=== PATIENT | male | born 1970 | race Caucasian/White ===

== ENCOUNTER 2018-10-24 04:59 | Inpatient (IN) | payer MEDICARE ==
[2018-10-24] MEDS ORDERED: Albuterol Sulfate 2.5 mg/3 ml Neb ONE (05:12)
[2018-10-24] MEDS ORDERED: Aspirin Chewable 81 MG TAB ONE (05:21)
[2018-10-24 05:26] LABS: #Eosinphils 0.1 thou/uL (0.0-0.7); #Lymphocytes 1.2 thou/uL (1.20-3.40); #Monocytes 0.7 thou/uL (0.11-0.59); #Neutrophils 8.5 thou/uL (1.40-6.50); %Basophils 0.2 % (0.0-1.0); %Eosinophils 0.8 % (0.0-10.0); %Lymphocytes 11.2 % (21.0-51.0); %Neutrophils 80.8 % (42.0-75.0); Hemoglobin 14.3 g/dL (14.0-18.0); Mean Corpuscular HGB CONC 32.5 g/dL (32.0-36.0); Mean Corpuscular Hemoglobin 29.4 pg (27.0-31.0); Mean Corpuscular Volume 90.6 fL (78.0-98.0); Mean Platelet Volume 7.4 fL (7.4-10.4); Platelet Count 205 thou/uL (130-400); RBC Distribution Width 12.3 % (11.5-14.5); Red Blood Cell (RBC) Count 4.85 mill/uL (4.70-6.10); White Blood Cell (WBC) Count 10.5 thou/uL (4.8-10.8)
[2018-10-24 05:43] LABS: ALT (SGPT) 37 U/L (8-55); AST (SGOT) 30 U/L (5-34); Albumin 3.6 g/dL (3.5-5.0); Alkaline Phosphatase 98 U/L (40-150); Anion Gap 15 mmol/L (10-20); BUN (Urea Nitrogen) 8 mg/dL (8.9-20.6); Calc. Creatinine Clearance 0 mL/min (70-130); Calcium 9.2 mg/dL (7.8-10.44); Carbon Dioxide 27 mmol/L (22-29); Chloride 96 mmol/L (98-107); Estimated GFR-MDRD Greater than 90; Globulin 4.6 g/dL (2.4-3.5); Glucose 301 mg/dL (70-105); Potassium 4.2 mmol/L (3.5-5.1); Protein, Total 8.2 g/dL (6.0-8.3); Sodium 134 mmol/L (136-145)
[2018-10-24] MEDS ORDERED: Enoxaparin Sodium 100 MG/ML SYRINGE ONE (06:28)
[2018-10-24] MEDS ORDERED: Enoxaparin Sodium 80 MG/0.8 ML SYRINGE ONE (06:28)
[2018-10-24] MEDS ORDERED: methylPREDNISolone Sod Succ/PF 125 MG/2 ML VIAL ONE (06:28)
[2018-10-24] MEDS ORDERED: Magnesium 2 GM/50 ML BAG (IN WATER) ONE (06:28)
[2018-10-24] MEDS ORDERED: cefTRIAXone\\ROCEPHIN 1 GM VIAL ONE (07:10)
[2018-10-24] MEDS ORDERED: Sodium Chloride 0.9% 100 ML ONE (07:10)
[2018-10-24] MEDS ORDERED: Azithromycin 500 MG VIAL ONE (07:12)
--- NOTE | 2018-10-24 07:32 | RAD ---
SINGLE VIEW CHEST: Date: 10/24/18 COMPARISON: 08/04/06. HISTORY: Shortness of breath. FINDINGS: Single view of the chest shows normal sized cardiomediastinal silhouette. Diffuse increased interstit ial lung markings are present. There are questionable superimposed air space opacities projecting ove r the lungs. This could also be artifactual secondary to underpenetration. IMPRESSION: Possible multifocal infiltrates. POS: C
[2018-10-24] MEDS ORDERED: Acetaminophen 325 MG TAB PO PRN (12:18)
[2018-10-24] MEDS ORDERED: Ondansetron ODT 4 MG TAB SL PRN (12:18)
[2018-10-24] MEDS ORDERED: Ondansetron PF 4 MG/2 ML Vial IVP PRN (12:18)
[2018-10-24] MEDS ORDERED: Dextrose 50% Abboject 50 ML SYRINGE SLOW IVP PRN (15:55)
[2018-10-24] MEDS ORDERED: Dextrose 5% in Water 1,000 ML IV PRN (15:55)
[2018-10-24] MEDS ORDERED: HumaLOG 300 UNITS/3 ML VIAL SC PRN (15:55)
[2018-10-24] MEDS: HumaLOG 300 UNITS/3 ML VIAL SC PRN (16:35)
--- NOTE | 2018-10-24 17:25 | CON ---
DATE OF CONSULTATION: 10/24/2018 CONSULTING PHYSICIAN: Dr. Jama [facility] consultation. HISTORY OF PRESENT ILLNESS: The patient is a 48-year-old male. He is a very poor historian. He woke up with shortness of breath and wheezing this morning. He presented to the ER. He was briefly on BiPAP. He is now off that. He says he feels better. He received some steroids and breathing treatments and antibiotics in the emergency room. PAST MEDICAL HISTORY: 1. COPD/asthma. 2. Hypertension. 3. Diabetes mellitus, type 2. 4. Morbid obesity. PAST SURGICAL HISTORY: None. PSYCHIATRIC HISTORY: Unremarkable. SOCIAL HISTORY: Former smoker, quit several years ago. Does not consume alcohol. Does not use illicit drugs. MEDICATIONS: He is on many medications for diabetes and COPD, but does not know the names. ALLERGIES: NONE. FAMILY MEDICAL HISTORY: Remarkable for lung disease. REVIEW OF SYSTEMS: Remarkable for swelling, chronic pain, and obesity. PHYSICAL EXAMINATION: VITAL SIGNS: Temperature 98.6, pulse 90, respirations 16, O2 saturation 95%, and blood pressure 156/116. GENERAL: The patient is 5 feet 10 inches, weighs 387 pounds. BMI is 55.6. HEENT: Remarkable for class 4 Mallampati airway. NECK: No JVD. LUNGS: Expiratory wheezes and crackles bilaterally. CARDIAC: S1 and S2, regular. ABDOMEN: Soft, obese, nontender, and nondistended. EXTREMITIES: 3+ edema from the knees downward. LABORATORY DATA: White blood cell count 10, hematocrit 44, platelet count 205 with 80% neutrophils. Sodium 134, potassium 4.2, chloride 96, CO2 of 27, BUN 8, creatinine 0.7 glucose 301. BNP 113. Troponin 0.01. DIAGNOSTIC DATA: Chest x-ray shows interstitial changes bilaterally. ASSESSMENT: 1. Chronic obstructive pulmonary disease with exacerbation. 2. Question of concurrent pneumonia versus fluid overload. 3. Morbid obesity. 4. Underlying obstructive sleep apnea. PLAN: When I saw the patient at 4:00 p.m., there were no admission orders on the chart; therefore, I placed some orders for antibiotics, steroids, and nebulization treatments on the chart. I also placed sliding scale order for insulin. We are pending the rest of his home medications. He will continue BiPAP on and off as needed, but right now, I think he only needed at night for treatment of his HAILEY. Job ID: [id number]
[2018-10-24] MEDS ORDERED: Benzonatate 100 MG CAP PO PRN (17:40)
[2018-10-24] MEDS ORDERED: Insulin Glargine 40 UNITS in Pre-Filled Syringe 1 EACH SC SCH (17:45)
[2018-10-24] MEDS: methylPREDNISolone Sod Succ 40 MG VIAL IVP SCH ×2 (17:55→23:35)
[2018-10-24] MEDS: Budesonide 0.5 MG/2 ML NEB INH SCH (18:22)
[2018-10-24] MEDS ORDERED: Budesonide 0.5 MG/2 ML NEB INH SCH (18:30)
[2018-10-24] MEDS: Insulin Glargine 40 UNITS in Pre-Filled Syringe 1 EACH SC SCH (20:44)
[2018-10-24] MEDS: Rosuvastatin 10 MG TAB PO SCH (20:45)
[2018-10-24] MEDS: HumuLIN 70/30 (300 UNITS/3 ML VIAL) SC SCH (20:45)
[2018-10-24] MEDS: guaiFENesin ER 600 MG TAB PO SCH (20:45)
[2018-10-24] MEDS: Enoxaparin Sodium 40 MG/0.4 ML SYRINGE SC SCH (20:46)
--- NOTE | 2018-10-25 01:23 | HP ---
CHIEF COMPLAINT ON ADMISSION: Exacerbation of COPD with possible early pneumonia. HISTORY OF PRESENT ILLNESS: The patient is a 48-year-old male who states on the morning of admission, he awoke very short of breath. He had been wheezing all morning and could not get his breath, so he came to the emergency room. In the ER, he required BiPAP to his O2 saturations over 92%. Dr. Jama was then called for admission. The patient had an infiltrate on his chest x-ray and it was noted that he may have pneumonia and blood cultures were drawn, antibiotics begun, and the patient was transferred IM because of the need for BiPAP. PAST MEDICAL HISTORY: Adult-onset diabetes mellitus type 2 with poor compliance, extreme morbid obesity with multiple failed attempts of weight loss, obstructive sleep apnea, clinically diagnosed, hypertension, COPD, history of asthma. PAST SURGICAL HISTORY: Positive for intraoperative debridement of right groin abscess in September 2013. ALLERGIES: NO KNOWN DRUG ALLERGIES. PSYCHIATRIC HISTORY: There are no psychiatric admissions. SOCIAL HISTORY: He had been a one-pack per day smoker for five or six years in the past. He denies any alcohol or illicit drug use. FAMILY HISTORY: Significant for diabetes mellitus in one brother, two half-sisters. Family history is negative for coronary artery disease. REVIEW OF SYSTEMS: CONSTITUTIONAL: At the time of admission is negative for chills, fever. He does have an occasional cough. HEENT: Negative for discharge from his eyes, ears, nose, or throat or pain in these. CHEST: Significant for dyspnea, cough, congestion. He admits to shortness of breath and wheezing. CARDIOVASCULAR: Denies chest pain or palpitations. GI: No nausea, vomiting, or diarrhea. : Denies dysuria, frequency, blood in urine or stool. MUSCULOSKELETAL: Denies any recent falls or injuries. Has chronic knee pain. SKIN: No new rashes or lesions. NEUROLOGIC: No trouble with mentation, headaches, blurred vision. HEMOLYTIC/LYMPH: The patient is chronically swollen in the lower extremities, but denies any new areas of edema. MEDICATIONS ON ADMISSION: Include; 1. Symbicort 160/4.5 two puffs b.i.d. 2. Vitamin D 50,000 units twice weekly. 3. Plavix 75 mg daily. 4. Prozac 20 mg daily. 5. Lasix 40 mg q.a.m. 6. Ibuprofen 800 mg p.r.n. joint pain. 7. Humulin 70/30, 60 units b.i.d. 8. Lisinopril 5 mg daily. 9. Metformin 1000 mg daily. 10. Rosuvastatin 100 mg daily. 11. Topiramate 100 mg daily. 12. Glipizide 5 mg one tab b.i.d. The patient has been able to take off and on Trulicity 1.5 mg subcu every week and Bydureon BCise 2 mg every week, but has not been able to maintain these due to lack of insurance coverage. PHYSICAL EXAMINATION: VITAL SIGNS: On admission, pulse 110, O2 saturation 81% on room air, temperature 97.4, blood pressure 136/96. GENERAL: This is an extremely obese male, alert, oriented, cooperative. HEENT: Normocephalic, atraumatic. Pupils are equal, round, and reactive to light. Extraocular muscles are intact. TMs, nares, and pharynx are clear. NECK: Supple. No enlarged nodes or thyroid. CHEST: With diminished breath sounds throughout with occasional wheezing in all lobes. CARDIOVASCULAR: Regular rate and rhythm. Unable to appreciate murmur due to faintness of heart sounds. ABDOMEN: Obese, unable to appreciate organomegaly, nontender. : Deferred. EXTREMITIES: With 3+ lower extremity edema from the knees down bilaterally with venous stasis changes to the skin. SKIN: No other rashes or lesions aside from the venous stasis changes bilaterally, which are chronic and old. NEUROLOGIC: Cranial nerves are intact. Gait is weak, but normal. Sensory exam is intact. Mental status is baseline. PSYCHIATRIC: Normal. IMAGING: EKG shows complete right bundle-branch block with T-waves indicating possible inferior ischemia, left posterior fascicular block as well. Chest x-ray shows possible early pneumonia with diffuse infiltrates. LABORATORY DATA: Lab work on admission thus far showed WBC 10.5, hemoglobin 14.3, hematocrit 44.0 with platelets of 205, neutrophils 80, lymphocytes 11.2. Sodium is 134, potassium 4.2, chloride 96, CO2 27, BUN 8, creatinine 0.4 with a greater than 90 GFR. Glucose in the ER was 300, in followup 345. Liver functions, unremarkable. Troponins, unremarkable. BNP slightly elevated at 113. ASSESSMENT: 1. Exacerbation of chronic obstructive pulmonary disease with possible early pneumonia. 2. Extreme obesity. 3. Obstructive sleep apnea-not compliant. 4. History of asthma. 5. Hypoxia due to the earlier process in place. 6. Insulin-dependent diabetic with poor compliance. PLAN: Schedule neb treatments. Continue steroid therapy. We use a sliding scale for exacerbations. Continue antibiotics and serially re-evaluate him. Job ID: [id number]
[2018-10-25 05:17] LABS: Hemoglobin A1c 11.4 % (4.0-6.0)
[2018-10-25 05:23] LABS: #Lymphocytes 0.8 thou/uL (1.20-3.40); #Monocytes 0.7 thou/uL (0.11-0.59); #Neutrophils 9.5 thou/uL (1.40-6.50); %Eosinophils 0.1 % (0.0-10.0); %Lymphocytes 7.4 % (21.0-51.0); %Monocytes 6.3 % (0.0-10.0); %Neutrophils 86.1 % (42.0-75.0); Hemoglobin 13.2 g/dL (14.0-18.0); Mean Corpuscular HGB CONC 33.3 g/dL (32.0-36.0); Mean Corpuscular Hemoglobin 29.6 pg (27.0-31.0); Mean Platelet Volume 7.2 fL (7.4-10.4); Platelet Count 255 thou/uL (130-400); RBC Distribution Width 12.1 % (11.5-14.5); Red Blood Cell (RBC) Count 4.46 mill/uL (4.70-6.10)
[2018-10-25] MEDS: HumaLOG 300 UNITS/3 ML VIAL SC PRN ×3 (05:40→16:44)
[2018-10-25] MEDS: cefTRIAXone\\ROCEPHIN 2 GM in Sodium Chloride 0.9% 100 ML IVPB SCH (05:40)
[2018-10-25] MEDS: methylPREDNISolone Sod Succ 40 MG VIAL IVP SCH ×4 (05:40→23:32)
[2018-10-25 05:41] LABS: Anion Gap 13 mmol/L (10-20); BUN (Urea Nitrogen) 15 mg/dL (8.9-20.6); Calc. Creatinine Clearance 313 mL/min (70-130); Calcium 9.2 mg/dL (7.8-10.44); Carbon Dioxide 28 mmol/L (22-29); Cardiac Risk 4.1 (Less than 4.5); Chloride 99 mmol/L (98-107); Cholesterol 116 mg/dl (< 200 Desired); Estimated GFR-MDRD Greater than 90; Glucose 321 mg/dL (70-105); HDL Cholesterol 28 mg/dL (>60 Neg Risk); LDL Cholesterol, Calculated 72 mg/dL; Potassium 4.4 mmol/L (3.5-5.1); Sodium 136 mmol/L (136-145); Triglycerides 81 mg/dL (Less than 150)
[2018-10-25] MEDS: Budesonide 0.5 MG/2 ML NEB INH SCH ×2 (07:25→18:32)
[2018-10-25] MEDS ORDERED: HumuLIN 70/30 (300 UNITS/3 ML VIAL) SC SCH (07:30)
--- NOTE | 2018-10-25 08:44 | PRG ---
DATE OF SERVICE: 10/25/2018 SUBJECTIVE: He feels better today. He did sleep with BiPAP last night for his sleep apnea. OBJECTIVE: VITAL SIGNS: On exam, his temperature is 98.0, pulse 74, blood pressure 167/102, and O2 sat 98%. HEENT: Unremarkable. NECK: No JVD. LUNGS: Bilateral expiratory wheezing. CARDIAC: S1 and S2, regular. ABDOMEN: Obese, soft, and nontender. EXTREMITIES: Edematous. LABORATORY DATA: White blood cell count 11, hematocrit 39.7, and platelet count 255. Sodium 136, potassium 4.4, chloride 99, CO2 of 28, BUN 15, creatinine 0.7, and glucose 291. ASSESSMENT: 1. Chronic obstructive pulmonary disease/asthmatic bronchitis with exacerbation. 2. Morbid obesity. 3. Obstructive sleep apnea. 4. Hypertension. PLAN: He will be transferred out to the medical floor. He will continue BiPAP at night for HAILEY. He will continue inhaled steroids, nebulization treatments, and antibiotics. Job ID: [id number]
--- NOTE | 2018-10-25 09:04 | RAD ---
AP CHEST: History: Pneumonia. Date: 10-25-18 Comparison: 10-24-18 FINDINGS: AP chest demonstrates some pulmonary vascular congestion. Diffuse interstitial markings are seen thro ughout the lungs, especially centrally and in the lung bases. This may represent areas of patchy pneu monia. Correlate with follow up radiographs to resolution. IMPRESSION: Patchy areas of perihilar and lung base interstitial densities. Correlate with follow up films to res olution. Subtle changes of pneumonia cannot be excluded. POS: [facility]
[2018-10-25] MEDS: guaiFENesin ER 600 MG TAB PO SCH ×2 (09:32→21:05)
[2018-10-25] MEDS: Clopidogrel Bisulfate 75 MG TAB PO SCH (09:32)
[2018-10-25] MEDS: Lisinopril 10 MG TAB PO SCH (09:32)
[2018-10-25] MEDS: FLUoxetine HCl 20 MG CAP PO SCH (09:32)
[2018-10-25] MEDS: metFORMIN XR 500 MG TAB PO SCH (09:32)
[2018-10-25] MEDS: Furosemide 40 MG TAB PO SCH (09:32)
[2018-10-25] MEDS: HumuLIN 70/30 (300 UNITS/3 ML VIAL) SC SCH ×2 (09:32→21:06)
[2018-10-25] MEDS: Enoxaparin Sodium 40 MG/0.4 ML SYRINGE SC SCH ×2 (09:33→21:06)
[2018-10-25] MEDS: Azithromycin 250 MG in Sodium Chloride 0.9% 250 ML 250 ML IVPB SCH (09:45)
[2018-10-25 10:30] VITALS: BMI 56.6
[2018-10-25] MEDS: Rosuvastatin 10 MG TAB PO SCH (21:05)
[2018-10-25] MEDS: Insulin Glargine 40 UNITS in Pre-Filled Syringe 1 EACH SC SCH (21:06)
[2018-10-26 05:23] LABS: #Lymphocytes 1.3 thou/uL (1.20-3.40); #Monocytes 0.9 thou/uL (0.11-0.59); #Neutrophils 10.2 thou/uL (1.40-6.50); %Basophils 0.1 % (0.0-1.0); %Eosinophils 0.4 % (0.0-10.0); %Lymphocytes 10.4 % (21.0-51.0); %Monocytes 7.2 % (0.0-10.0); %Neutrophils 81.9 % (42.0-75.0); Hemoglobin 13.4 g/dL (14.0-18.0); Mean Corpuscular HGB CONC 32.5 g/dL (32.0-36.0); Mean Corpuscular Volume 92.1 fL (78.0-98.0); Mean Platelet Volume 7.1 fL (7.4-10.4); Platelet Count 266 thou/uL (130-400); RBC Distribution Width 12.1 % (11.5-14.5); Red Blood Cell (RBC) Count 4.47 mill/uL (4.70-6.10); White Blood Cell (WBC) Count 12.5 thou/uL (4.8-10.8)
[2018-10-26] MEDS: cefTRIAXone\\ROCEPHIN 2 GM in Sodium Chloride 0.9% 100 ML IVPB SCH (05:25)
[2018-10-26] MEDS: methylPREDNISolone Sod Succ 40 MG VIAL IVP SCH (05:26)
[2018-10-26] MEDS: HumaLOG 300 UNITS/3 ML VIAL SC PRN ×3 (05:32→18:02)
[2018-10-26] MEDS: Budesonide 0.5 MG/2 ML NEB INH SCH ×2 (06:51→18:39)
--- NOTE | 2018-10-26 09:01 | PRG ---
DATE OF SERVICE: 10/26/2018 SUBJECTIVE: Mr. Matias is doing much better. He has began to walk the halls. OBJECTIVE: VITAL SIGNS: Temperature 98.3, pulse 91, respirations 18, O2 saturation 94% on room air, and blood pressure 120/75. HEENT: Unremarkable. NECK: No JVD. LUNGS: A few expiratory wheezes are noted. CARDIAC: S1 and S2. Regular. ABDOMEN: Soft. EXTREMITIES: Edematous from the knees down. LABORATORY DATA: White blood cell count 12.5, hematocrit 41.1, and platelet count 266. No chemistry was performed today. ASSESSMENT: 1. Chronic obstructive pulmonary disease with exacerbation. 2. Morbid obesity. 3. Obstructive sleep apnea. 4. Hypertension. PLAN: The patient is approaching the point to where he can be discharged. I will go ahead and convert him over to oral antibiotic therapy. He will be switched over to oral steroids in anticipation of his discharge. Job ID: [id number]
[2018-10-26] MEDS: metFORMIN XR 500 MG TAB PO SCH (09:15)
[2018-10-26] MEDS: FLUoxetine HCl 20 MG CAP PO SCH (09:15)
[2018-10-26] MEDS: Cefdinir 300 MG CAP PO SCH (09:15)
[2018-10-26] MEDS: Clopidogrel Bisulfate 75 MG TAB PO SCH (09:15)
[2018-10-26] MEDS: predniSONE 20 MG TAB PO SCH ×2 (09:16→20:45)
[2018-10-26] MEDS: guaiFENesin ER 600 MG TAB PO SCH ×2 (09:16→20:45)
[2018-10-26] MEDS: Azithromycin 250 MG TAB PO SCH (09:16)
[2018-10-26] MEDS: Furosemide 40 MG TAB PO SCH (09:16)
[2018-10-26] MEDS: Enoxaparin Sodium 40 MG/0.4 ML SYRINGE SC SCH ×2 (09:17→20:45)
[2018-10-26] MEDS: HumuLIN 70/30 (300 UNITS/3 ML VIAL) SC SCH ×2 (09:18→18:00)
[2018-10-26] MEDS: Lisinopril 10 MG TAB PO SCH (09:24)
[2018-10-26] MEDS: Azithromycin 250 MG in Sodium Chloride 0.9% 250 ML 250 ML IVPB SCH (09:36)
--- NOTE | 2018-10-26 14:29 | PQF ---
BJ BOONE MALIK MD [id number] SURG B- [id number] CLINICAL DOCUMENTATION IMPROVEMENT CLARIFICATION FORM: ICD-10 Updated PLEASE DO AN ADDENDUM TO THE PROGRESS NOTE WITH ANY DOCUMENTATION UPDATES OR ADDITIONS AND CARRY THROUGH TO DC SUMMARY. THANK YOU. DATE: 10/26/18 ATTN: DR Mykel ALFARO Please exercise your independent, professional judgment in responding to the clarification form. Clinical indicators are provided on the bottom of this form for your review. Please check appropriate box(s): [ ] Acute Respiratory Failure: [ ] with Hypoxia [ ] with Hypercapnia [ ] Acute Respiratory Failure due to: (etiology) [ ] Other diagnosis [ ] Unable to determine In addition, please specify: Present on Admission (POA): [ ] Yes [ ] No [ ] Unable to determine For continuity of documentation, please document condition throughout progress notes and discharge summary. Thank You. CLINICAL INDICATORS - SIGNS / SYMPTOMS / LABS 10/24- ED O2 SAT 81 % RA > 85% 3L > 95% NRB> 99% BIPAP PT TRANSFERRED TO [facility] FOR BIPAP 10/24 ED PHYSICIAN DX : ACUTE RESP FAILURE ; ADDITIONAL : RESPIRATORY DISTRESS, DOCTOR NOTES, PT PRESENTS IN RESP DISTRESS. 10/24 H & P (BLAINE) ASSESSMENT: 5) HYPOXIA DUE TO EARLY PROCESS IN PLACE RISK FACTORS COPD exacerbation Hx of asthma TREATMENTS: Neb tx (10/25-present) Pulmonary Consult SUPPLEMENTAL OXYGEN THANK YOU! NAGI (This form is maintained as a part of the permanent medical record) 2014 [employer]. All Rights Reserved [email or web address] [phone] [email or web address]
--- NOTE | 2018-10-26 14:47 | PQF ---
BJ BOONE MALIK MD [id number] SURG B- [id number] CLINICAL DOCUMENTATION IMPROVEMENT CLARIFICATION FORM: ICD-10 Updated PLEASE DO AN ADDENDUM TO THE PROGRESS NOTE WITH ANY DOCUMENTATION UPDATES OR ADDITIONS AND CARRY THROUGH TO DC SUMMARY. THANK YOU. DATE: 10/26/18 ATTN: DR Mykel ALFARO Please exercise your independent, professional judgment in responding to the clarification form. Clinical indicators are provided on the bottom of this form for your review. Please check appropriate box(s) to clarify if the following diagnosis has been ruled in or ruled out: PNEUMONIA [ ] Ruled in diagnosis [ ] CONTINUE TO TREAT [ ] Ruled out diagnosis [ ] Other diagnosis [ ] Unable to determine In addition, please specify: Present on Admission (POA): [ ] Yes [ ] No [ ] Unable to determine For continuity of documentation, please document condition throughout progress notes and discharge summary. Thank You. CLINICAL INDICATORS - SIGNS / SYMPTOMS / LABS 3 CHEST XRAY ON ADMISSION : IMPRESSION POSSIBLE MULTIFOCAL INFILTRATES 10/25 CHEST XRAY : IMPRESSION: PATCHY AREAS OF PERIHILAR AND LUNG BASE INTERSTITIAL DENSITIES , CORRELATE WITH FILMS TO RESOLUTION. SUBTLE CHANGES OF PNEUMONIA CANNOT BE EXCLUDED 10/25 (GERALDO) ASSESSMENT 1) ASTHMATIC BRONCHITIS NO FURTHER MENTION OF PNA TO DATE RISK: COPD EXACERBATION HYPOXIA HX ASTHMA TREATMENTS NEBS 37-PRESENT SUPPLEMENTAL O2 ROCEPHIN IV (3-7- PRESENT) THANK YOU! NAGI (This form is maintained as a part of the permanent medical record) 2014 [employer]. All Rights Reserved [email or web address] [phone] [email or web address]
[2018-10-26] MEDS: Rosuvastatin 10 MG TAB PO SCH (20:45)
[2018-10-26] MEDS: Insulin Glargine 40 UNITS in Pre-Filled Syringe 1 EACH SC SCH (20:45)
--- NOTE | 2018-10-26 21:29 | PDOC.PN ---
- Subjective Encounter Start Date: 10/26/18 Encounter Start Time: 17:15 Patient seen and examined for COPD flare. SOB improving. Productive cough. No other complaints. No overnight events - Objective MAR Reviewed: Yes Vital Signs & Weight: Vital Signs (12 hours) Temp Pulse Resp BP Pulse Ox 10/26/18 20:00 98.3 F 100 16 135/71 92 L 10/26/18 18:39 81 16 96 10/26/18 15:00 98.6 F 78 20 138/80 92 L 10/26/18 14:28 67 16 94 L 10/26/18 12:00 93 L 10/26/18 11:32 98.7 F 74 18 150/86 H 93 L 10/26/18 10:03 70 16 93 L Weight Weight 383 lb 6.4 oz Most Recent Monitor Data Heart Rate from ECG 71 NIBP 175/96 NIBP BP-Mean 122 Respiration from ECG 15 SpO2 94 I&O: 10/25/18 10/26/18 10/27/18 06:59 06:59 06:59 Intake Total 1060 1730 Output Total 3300 1800 Balance -2240 -70 Result Diagrams: 10/26/18 04:23 10/25/18 04:55 Additional Labs: Accuchecks 10/26/18 10/26/18 10/26/18 16:00 11:16 05:31 POC Glucose 278 H 261 H 222 H Phys Exam - Physical Examination Constitutional: NAD Respiratory: wheezing present Scat rales/rhonchi Cardiovascular: RRR, no rub Gastrointestinal: soft, non-tender, positive bowel sounds Dx/Plan - Plan DVT proph w/lovenox 1. Acute hypoxic resp failure due to #2 2. COPD exacerbation with suspected Pneumonia ?Pneumococcal 3. HAILEY 4. Morbid obesity BMI 56.6 5. DM2 6. Other issues per previous notes PLAN: Cont current Atbx with oral steroids Cont sliding scale Change 70/30 insulin with meals Cont Lantus HS Cont Aggressive sliding scale DC in 24 hr if stable Review of Systems - Review of Systems Cardiovascular: negative: chest pain, palpitations, orthopnea, paroxysmal nocturnal dyspnea, edema, light headedness, other Gastrointestinal: negative: Nausea, Vomiting, Abdominal Pain, Diarrhea, Constipation, Melena, Hematochezia, Other - Medications/Allergies Allergies/Adverse Reactions: Allergies Allergy/AdvReac Type Severity Reaction Status Date / Time No Known Allergies Allergy Verified 10/24/18 12:17 Medications: Current Medications Albuterol/Ipratropium (Duoneb) 3 ml NEB Q2H PRN PRN Reason: SOB &/or Wheezing Albuterol/Ipratropium (Duoneb) 3 ml NEB [id number] [facility] Last Admin: 10/26/18 18:41 Dose: 3 ml Azithromycin (Zithromax) 250 mg PO DAILY [facility] Stop: 10/29/18 09:01 Last Admin: 10/26/18 09:16 Dose: 250 mg Benzonatate (Tessalon) 200 mg PO Q6H PRN PRN Reason: Cough Budesonide (Pulmicort Neb Solution) 0.5 mg INH BID-RT [facility] Last Admin: 10/26/18 18:39 Dose: 0.5 mg Cefdinir (Omnicef) 600 mg PO DAILY [facility] Last Admin: 10/26/18 09:15 Dose: 600 mg Clopidogrel Bisulfate (Plavix) 75 mg PO DAILY [facility] Last Admin: 10/26/18 09:15 Dose: 75 mg Dextrose/Water (Dextrose 50%) 25 gm SLOW IVP PRN PRN PRN Reason: Hypoglycemia Enoxaparin Sodium (Lovenox) 40 mg SC 0900,2100 [facility] Last Admin: 10/26/18 20:45 Dose: 40 mg Fluoxetine HCl (Prozac) 20 mg PO DAILY [facility] Last Admin: 10/26/18 09:15 Dose: 20 mg Furosemide (Lasix) 40 mg PO DAILY [facility] Last Admin: 10/26/18 09:16 Dose: 40 mg Glucagon (Glucagon) 1 mg IM PRN PRN PRN Reason: Hypoglycemia Guaifenesin (Mucinex) 1,200 mg PO Q12HR [facility] Last Admin: 10/26/18 20:45 Dose: 1,200 mg Dextrose/Water (D5w) 1,000 mls @ 0 mls/hr IV .Q0M PRN PRN Reason: Hypoglycemia Insulin Glargine 40 units/ (Miscellaneous Medication) 0.4 mls @ 0 mls/hr SC HS [facility] Last Admin: 10/26/18 20:45 Dose: 0.4 mls Insulin Human Isoph/Insulin Regular (Humulin 70/30) 60 units SC BID-WM [facility] Last Admin: 10/26/18 18:00 Dose: 60 unit Insulin Human Lispro (Humalog) 0 units SC .AGGRESSIVE SLIDING PRN PRN Reason: Aggressive Correctional Scale Last Admin: 10/26/18 18:02 Dose: 9 unit Insulin Human Lispro (Humalog) 0 units SC .BEDTIME SLIDING SC PRN PRN Reason: Bedtime Correctional Scale Lisinopril (Zestril) 10 mg PO DAILY [facility] Last Admin: 10/26/18 09:24 Dose: 10 mg Metformin HCl (Glucophage Xr) 1,000 mg PO QAM-WM [facility] Last Admin: 10/26/18 09:15 Dose: 1,000 mg Prednisone (Prednisone) 20 mg PO BID [facility] Last Admin: 10/26/18 20:45 Dose: 20 mg Rosuvastatin Calcium (Crestor) 10 mg PO HS [facility] Last Admin: 10/26/18 20:45 Dose: 10 mg Sodium Chloride (Flush - Normal Saline) 10 ml IVF Q12HR [facility] Last Admin: 10/26/18 20:46 Dose: 10 ml Sodium Chloride (Flush - Normal Saline) 10 ml IVF PRN PRN PRN Reason: Saline Flush
[2018-10-27] MEDS: Budesonide 0.5 MG/2 ML NEB INH SCH (07:13)
[2018-10-27] MEDS: guaiFENesin ER 600 MG TAB PO SCH (10:04)
[2018-10-27] MEDS: Cefdinir 300 MG CAP PO SCH (10:04)
[2018-10-27] MEDS: metFORMIN XR 500 MG TAB PO SCH (10:04)
[2018-10-27] MEDS: Clopidogrel Bisulfate 75 MG TAB PO SCH (10:04)
[2018-10-27] MEDS: Furosemide 40 MG TAB PO SCH (10:04)
[2018-10-27] MEDS: FLUoxetine HCl 20 MG CAP PO SCH (10:04)
[2018-10-27] MEDS: Lisinopril 10 MG TAB PO SCH (10:05)
[2018-10-27] MEDS: predniSONE 20 MG TAB PO SCH (10:05)
[2018-10-27] MEDS: HumuLIN 70/30 (300 UNITS/3 ML VIAL) SC SCH (10:05)
[2018-10-27] MEDS: Enoxaparin Sodium 40 MG/0.4 ML SYRINGE SC SCH (10:06)
[2018-10-27] MEDS: Azithromycin 250 MG TAB PO SCH (10:07)
[2018-10-27 11:25] VITALS: BP 139/84; TEMP 98.1
--- NOTE | 2018-10-27 13:21 | PDOC.PN ---
- Subjective Encounter Start Date: 10/27/18 Encounter Start Time: 13:19 Mr. Matias was seen today in follow-up of Pneumonia. He says he is breathing better today he does not have any complaints. - Objective MAR Reviewed: Yes Vital Signs & Weight: Vital Signs (12 hours) Temp Pulse Resp BP Pulse Ox 10/27/18 11:24 98.1 F 79 18 139/84 93 L 10/27/18 11:02 79 20 96 10/27/18 07:57 98.3 F 79 16 114/69 94 L 10/27/18 07:13 78 20 98 10/27/18 07:11 78 20 98 10/27/18 04:00 97.5 F L 66 14 106/67 97 Weight Weight 383 lb 6.4 oz Most Recent Monitor Data Heart Rate from ECG 71 NIBP 175/96 NIBP BP-Mean 122 Respiration from ECG 15 SpO2 94 I&O: 10/26/18 10/27/18 10/28/18 06:59 06:59 07:59 Intake Total 1730 420 Output Total 1800 Balance -70 420 Result Diagrams: 10/26/18 04:23 10/25/18 04:55 Additional Labs: Accuchecks 10/27/18 10/27/18 10/26/18 11:25 05:29 21:22 POC Glucose 179 H 75 134 H 10/26/18 16:00 POC Glucose 278 H Phys Exam - Physical Examination HEENT: PERRLA Respiratory: wheezing present + occasional scattered wheeze, no rales Cardiovascular: RRR, no significant murmur, no rub Gastrointestinal: soft, non-tender, no distention, positive bowel sounds Musculoskeletal: no edema Dx/Plan (1) Acute respiratory failure Code(s): J96.00 - ACUTE RESPIRATORY FAILURE, UNSP W HYPOXIA OR HYPERCAPNIA Status: Acute (2) Pneumonia, community acquired Code(s): J18.9 - PNEUMONIA, UNSPECIFIED ORGANISM Status: Acute (3) Diabetes mellitus type 2 in obese Code(s): E11.69 - TYPE 2 DIABETES MELLITUS WITH OTHER SPECIFIED COMPLICATION; E66.9 - OBESITY, UNSPECIFIED Status: Chronic (4) Morbid obesity with BMI of 50.0-59.9, adult Code(s): E66.01 - MORBID (SEVERE) OBESITY DUE TO EXCESS CALORIES; Z68.43 - BODY MASS INDEX (BMI) 50-59.9, ADULT Status: Acute (5) HAILEY (obstructive sleep apnea) Code(s): G47.33 - OBSTRUCTIVE SLEEP APNEA (ADULT) (PEDIATRIC) Status: Chronic - Plan * Pneumonia- clinically improved * He is stable for discharge home with close outpatient follow-up..
--- NOTE | 2018-10-27 14:05 | DIS ---
DATE OF ADMISSION: 10/24/2018 DATE OF DISCHARGE: 10/27/2018 PRIMARY CARE PHYSICIAN: Dr. Brandon Jama. DISCHARGE DISPOSITION: Home. PRIMARY DISCHARGE DIAGNOSES: 1. Community-acquired pneumonia. 2. Acute respiratory failure secondary to community-acquired pneumonia. 3. Morbid obesity. 4. Diabetes mellitus type 2. 5. Obstructive sleep apnea. 6. Hypertension. 7. Chronic obstructive pulmonary disease. DISCHARGE MEDICATIONS: Include: 1. Zithromax 250 mg daily for 2 days. 2. Omnicef 600 mg daily. 3. Lisinopril 10 mg daily. 4. Prednisone taper. 5. Tessalon Perles 200 mg q.6 hours as needed. 6. Topamax 100 mg twice daily. 7. Metformin 1000 mg daily. 8. Ibuprofen 800 mg q.6 hours as needed. 9. Humulin insulin 70/30, 60 units twice daily. 10. Glipizide 5 mg p.o. twice daily. 11. Lasix 40 mg daily. 12. Fluoxetine 20 mg daily. 13. Plavix 75 mg daily. CODE STATUS: Full code. ALLERGIES: NO KNOWN DRUG ALLERGIES. HOSPITAL COURSE: Mr. Matias is a pleasant 48-year-old gentleman who presented to the emergency room complaining of cough and shortness of breath and wheezing. He was evaluated in the ER and a chest x-ray demonstrated some patchy perihilar possible infiltrates. He was treated for COPD exacerbation, likely due to pneumonia and was seen by pulmonology. He improved over the course of the next couple of days and was subsequently able to be discharged home in stable condition. He is to follow up with Dr. Jama in approximately 1 week and also follow up with Dr. Malone as instructed. Job ID: [id number]
== END 2018-10-27 16:13 | disposition home or self-care (01) | DRG 193 ==
LOC: ERS 04:59 → ERHOLD 07:28 → IMCU/EMU 12:02 → SURG B 10-25 22:02
PROVIDERS: ADMIT Specialist; ATTEND Specialist
DX: J18.9 Pneumonia, unspecified organism (principal); J96.01 Acute respiratory failure with hypoxia; J44.1 Chronic obstructive pulmonary disease with (acute) exacerbation; Z68.43 Body mass index [BMI] 50.0-59.9, adult; J44.0 Chronic obstructive pulmonary disease with (acute) lower respiratory infection; G47.33 Obstructive sleep apnea (adult) (pediatric); E11.9 Type 2 diabetes mellitus without complications; Z79.4 Long term (current) use of insulin; E66.01 Morbid (severe) obesity due to excess calories; I10 Essential (primary) hypertension
CPT/HCPCS: 36415; 36416; 71045; 80048; 80053; 80061; 83036; 83605; 83880; 84443; 84484; 85025; 87040; 87804; 90471; 90686; 90732; 93005; 94640; 94644; 94660; 96365; 96367; 96372; 96375; G0008; G0009; J0456; J0696; J1650; J1815; J1825; J2920; J2930; J3475; J7050; J7611; J7620; J7626

== ENCOUNTER 2020-06-03 13:46 | Emergency (ER) | payer MEDICARE ==
--- NOTE | 2020-06-03 14:55 | RAD ---
Exam:3 views right hand HISTORY: Pain. Injury. Laceration. COMPARISON: None FINDINGS: No fracture, cortical irregularity or periosteal reaction. No radiopaque foreign body. IMPRESSION: No fracture.
[2020-06-03] MEDS ORDERED: Boostrix 0.5 ML VIAL ONE (14:58)
[2020-06-03] MEDS ORDERED: Lidocaine 1% (PF) 30 ML VIAL ONE (15:10)
[2020-06-03] MEDS ORDERED: Bacitracin 1 PK ONE (17:07)
== END 2020-06-03 17:17 | disposition home or self-care (01) ==
LOC: ERS 13:46
DX: S61.511A Laceration without foreign body of right wrist, initial encounter (principal); S61.411A Laceration without foreign body of right hand, initial encounter; I10 Essential (primary) hypertension; E11.9 Type 2 diabetes mellitus without complications; G47.30 Sleep apnea, unspecified; W01.0XXA Fall on same level from slipping, tripping and stumbling without subsequent striking against object, initial encounter
CPT/HCPCS: 12002; 90471; 90715; J2001